=== PATIENT | female | born 1985 | race Caucasian/White ===

== ENCOUNTER 2019-06-26 21:08 | Emergency (ER) | payer SELFPAY ==
[2019-06-26 21:11] VITALS: BP 136/92; PULSE 91; RESP 18; TEMP 36.9; O2SAT 97; BMI 47.8
--- NOTE | 2019-06-26 21:15 | XR_ITS ---
WS: [id number] RIGHT KNEE: 2 VIEW(S) TECHNIQUE: AP and lateral. HISTORY: injury COMPARISON: None available. No fracture or dislocation. No joint space narrowing or osteophytes. No joint effusion. No soft tissue abnormality. XR/XR knee RT 1-2V [id number] IMPRESSION: Normal RIGHT knee.
--- NOTE | 2019-06-26 21:15 | XR_ITS ---
WS: [id number] PELVIS AND RIGHT HIP HISTORY: injury COMPARISON: None available. Right hip: Acute vertical fracture extending through the acetabulum. Fracture extends along the poste rior acetabulum and superiorly through the junction of the superior pubic rami with the ilium. Fractu re line also extends transversely along the superior acetabulum. No displacement. The femoral head is intact. Mild narrowing of the SI joints. Advanced degenerative changes in the lower lumbar spine. XR/XR hip RT 2-3V wo/w pel* [id number] IMPRESSION: 1. Acute nondisplaced, complex posterior acetabular fracture extends superiorl y to involve lateral most junction with the superior pubic rami and transversel y across the superior acetabulum. 2. No displacement.
--- NOTE | 2019-06-26 21:16 | XR_ITS ---
WS: [id number] PORTABLE CHEST HISTORY: cough COMPARISON: None available. Lungs are clear and well expanded. No pleural effusion or pneumothorax. Cardiac size: Normal. Mediastinum/Aorta: Normal mediastinum. No osseous abnormality seen. XR/XR chest 1V portable [id number] IMPRESSION: Unremarkable portable chest.
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
[2019-06-26 21:43] LABS: Basophils # 0.1 10^3/uL (0.0-0.1); Basophils % 0.4 %; Eosinophils # 0.1 10^3/uL (0.0-0.8); Eosinophils % 0.3 %; Hematocrit 40.5 % (37.0-47.0); Hemoglobin 13.5 g/dL (11.5-15.3); Lymphocytes # 2.3 10^3/uL (0.8-4.8); Lymphocytes % 11.7 %; Mean Corpuscular HGB Conc 33.3 g/dL (30.0-36.0); Mean Corpuscular Hemoglobin 33.6 pg (28.0-34.0); Mean Corpuscular Volume 100.7 fL (81-99); Mean Platelet Volume 9.8 fL (7.4-10.4); Monocytes # 1.3 10^3/uL (0.2-0.9); Monocytes % 6.4 %; Neutrophils # 15.9 10^3/uL (1.8-7.7); Neutrophils % 80.7 %; Nucleated Red Blood Cells % 0 %; Platelet Count 418 10^3/cmm (130-400); Red Blood Count 4.02 10^6/uL (4.1-5.3); Red Cell Distribution Width 13.6 % (12.1-15.1); White Blood Count 19.7 10^3/uL (4.0-10.0)
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
[2019-06-26 21:55] LABS: Alanine Aminotransferase 53 U/L (0-33); Albumin Level 4.2 g/dL (3.5-5.2); Alkaline Phosphatase 89 IU/L (35-105); Aspartate Amino Transferase 29 U/L (0-32); Blood Urea Nitrogen 11 mg/dL (6-20); Calcium 9.5 mg/dL (8.5-10.5); Carbon Dioxide 24 mmol/L (22-29); Chloride 99 mmol/L (98-107); Globulin 3.3 g/dL (1.3-4.6); Glomerular Filtration Rate 95.8 mL/min (90-130); Glucose 128 mg/dL (65-115); Osmolality Calculated 284 mOsm/kg (285-295); Sodium 138 mmol/L (136-145); Total Bilirubin 0.2 mg/dL (0.15-1.2); Total Protein 7.5 g/dL (6.6-8.7)
[2019-06-26] MEDS: iodixanol 320 mg/mL 100mL Btl IV (22:18)
[2019-06-26 22:36] LABS: HCG, Serum Qual Negative (Negative)
[2019-06-26] MEDS: ondansetron 2 mg/ML SDV 2 mL 4 MG IVP (22:36)
[2019-06-26 22:37] VITALS: RESP 16; O2SAT 99
[2019-06-26] MEDS: morphine 4 mg/mL SDV 1 mL IVP (22:37)
[2019-06-26] MEDS: sodium chloride 0.9% 1,000 ML 100 ML IV (22:47)
[2019-06-26 22:51] VITALS: BP 136/92; PULSE 90; RESP 18; O2SAT 98
[2019-06-26 22:59] LABS: INR 0.99 (0.8-1.2)
[2019-06-26 23:00] LABS: Partial Thromboplastin Time 22.9 SECONDS (23.9-36.7)
[2019-06-26 23:12] LABS: Add Urine Culture? No; Bilirubin Urine Neg (NEGATIVE); Blood Urine Neg (Negative); Glucose Urine UA Norm (Normal); Ketones Urine Negative (Negative); Leukocyte Esterase Urine Negative (Negative); Nitrate Urine Negative (Negative); Protein Urine Neg (Negative); Specific Gravity, Urine 1.015 (1.005-1.030); Urine Appearance Clear (CLEAR); Urine Color Yellow (Yellow); Urobilinogen Urine 1 mg/dL (Negative); pH Urine 6 (5-7)
[2019-06-26 23:46] VITALS: BP 136/92; PULSE 87; RESP 18; O2SAT 97
[2019-06-27] VITALS (7 sets, daily range): BP systolic 101–127; BP diastolic 69–104; PULSE 68–78; RESP 18; O2SAT 96–99
[2019-06-27] MEDS: HYDROmorphone 1 mg/mL INJ 1 mL 0.5 MG IVP ×2 (00:44→03:34)
== END 2019-06-27 03:40 | disposition short-term general hospital (02) ==
PROVIDERS: Emergency Provider Emergency Medicine; Family Provider Family Medicine; PCP Registered Nurse
DX: S32.491A Other specified fracture of right acetabulum, initial encounter for closed fracture (principal); V48.5XXA Car driver injured in noncollision transport accident in traffic accident, initial encounter; F32.9 Major depressive disorder, single episode, unspecified; M25.551 Pain in right hip
CPT/HCPCS: 12345; 51702; 70450; 71045; 71260; 72125; 72128; 72131; 73502; 73560; 73562; 74177; 80053; 81001; 84703; 85025; 85610; 85730; 96375; 99283; J1170; J2270; J2405; J7030; Q9967

== ENCOUNTER 2019-09-25 08:29 | Outpatient (RCR) | payer BC, SELFPAY | END 2019-09-25 23:59 | disposition home or self-care (01) | LOC: SPT 08:29 | PROVIDERS: PCP Family Medicine; Referring Provider Orthopaedic Surgery; Visit Provider Orthopaedic Surgery | DX: S32.401D Unspecified fracture of right acetabulum, subsequent encounter for fracture with routine healing (principal); X58.XXXD Exposure to other specified factors, subsequent encounter | CPT/HCPCS: 97110; 97162 ==

== ENCOUNTER → 2019-11-08 08:58 | Outpatient (BNVA) | payer BC, SELFPAY | PROVIDERS: PCP Family Medicine; Visit Provider Anesthesiology Pain Medicine | DX: M51.16 Intervertebral disc disorders with radiculopathy, lumbar region (principal); M47.816 Spondylosis without myelopathy or radiculopathy, lumbar region; M43.06 Spondylolysis, lumbar region; M54.9 Dorsalgia, unspecified; F17.210 Nicotine dependence, cigarettes, uncomplicated; Z79.891 Long term (current) use of opiate analgesic | CPT/HCPCS: 99205 ==

== ENCOUNTER → 2019-11-14 14:24 | Outpatient (BNVA) | payer BC, SELFPAY | PROVIDERS: PCP Family Medicine; Visit Provider Anesthesiology Pain Medicine | DX: M51.16 Intervertebral disc disorders with radiculopathy, lumbar region (principal); M54.9 Dorsalgia, unspecified; F17.210 Nicotine dependence, cigarettes, uncomplicated; Z79.891 Long term (current) use of opiate analgesic | CPT/HCPCS: 64483; 64484; J1040; J3490 ==

== ENCOUNTER → 2020-04-02 10:37 | Outpatient (BNVA) | payer BC, SELFPAY | PROVIDERS: PCP Family Medicine; Visit Provider Registered Nurse | DX: R50.9 Fever, unspecified (principal); J06.9 Acute upper respiratory infection, unspecified | CPT/HCPCS: 87635 ==

== ENCOUNTER 2020-11-11 10:31 | Emergency (ER) | payer SELFPAY ==
[2020-11-11 10:46] VITALS: BP 128/105; RESP 16; TEMP 37; O2SAT 97; BMI 44.9
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
[2020-11-11 11:11] LABS: Basophils # 0.1 10^3/uL (0.0-0.1); Basophils % 0.7 %; Eosinophils # 0.2 10^3/uL (0.0-0.8); Eosinophils % 1.7 %; Hematocrit 43.1 % (37.0-47.0); Hemoglobin 14.5 g/dL (11.5-15.3); Lymphocytes # 1.9 10^3/uL (0.8-4.8); Lymphocytes % 17.8 %; Mean Corpuscular HGB Conc 33.6 g/dL (30.0-36.0); Mean Corpuscular Volume 101.2 fl (81-99); Mean Platelet Volume 9.5 fL (7.4-10.4); Monocytes # 0.8 10^3/uL (0.2-0.9); Monocytes % 7.7 %; Neutrophils # 7.47 10^3/uL (1.8-7.7); Neutrophils % 71.6 %; Nucleated Red Blood Cells % 0 %; Platelet Count 412 10^3/cmm (130-400); Red Blood Count 4.26 10^6/uL (4.1-5.3); Red Cell Distribution Width 13.5 % (12.1-15.1); White Blood Count 10.4 10^3/uL (4.0-10.0)
[2020-11-11 11:16] LABS: Add Urine Microscopic? YES; Bilirubin Urine Neg (Negative); Blood Urine Neg (Negative); Glucose Urine UA Norm (Normal); Ketones Urine 2+ (Negative); Leukocyte Esterase Urine Negative (Negative); Nitrate Urine Negative (Negative); Protein Urine Neg (Negative); Urine Appearance Hazy (CLEAR); Urine Color Yellow (Yellow); Urobilinogen Urine Norm (Negative); pH Urine 5 (5-7)
[2020-11-11 11:25] LABS: Alanine Aminotransferase 123 U/L (0-33); Albumin Level 4.3 g/dL (3.5-5.2); Alkaline Phosphatase 102 IU/L (35-105); Anion Gap 18.2 (5-19); Aspartate Amino Transferase 93 U/L (0-32); Blood Urea Nitrogen 11 mg/dL (6-20); Carbon Dioxide 25 mmol/L (22-29); Chloride 98 mmol/L (98-107); Globulin 3.7 g/dL (1.3-4.6); Glomerular Filtration Rate 113.8 mL/min (90-130); Glucose 98 mg/dL (65-115); Osmolality Calculated 283 mOsm/kg (285-295); Potassium 4.2 mmol/L (3.5-5.1); Sodium 137 mmol/L (136-145); Total Bilirubin 0.6 mg/dL (0.15-1.2)
--- NOTE | 2020-11-11 11:29 | PC.PHAR ---
PT IS IN [facility] STATES THEY HAVENT BEEN GIVING THE PT ANY MEDICATION EXCEPT FOR TYLENOL
[2020-11-11 11:48] LABS: HCG, Serum Qual Negative (Negative)
[2020-11-11 11:51] LABS: RBC Urine RARE /hpf (0-2); WBC Urine 0-4 /hpf (0-5)
[2020-11-11 11:52] LABS: Add Urine Culture? No; Bacteria Urine 2+ /hpf; Mucus Urine 1+ /hpf; Squamous Epithelial Cell Urine 25-40 /hpf (0-5)
[2020-11-11 12:05] LABS: Hepatitis A Antibody IgM Non-Reactive (Nonreactive); Hepatitis B Core IgM Non-Reactive (Nonreactive); Hepatitis B Surface Antigen Non-Reactive (Nonreactive); Hepatitis C Virus Antibody Reactive (Nonreactive)
[2020-11-11 12:36] VITALS: BP 169/122; PULSE 111; O2SAT 97
[2020-11-11 13:51] LABS: HIV 1 & 2 Antibody Non-Reactive (Non-Reactiv); HIV 1 & 2 Antigen Non-Reactive (Non-Reactiv)
[2020-11-11] MEDS: azithromycin 250 mg Tablet 1000 MG PO (14:08)
[2020-11-11] MEDS: metroNIDAZOLE 500 MG Tablet 2000 MG PO (14:10)
[2020-11-11] MEDS: cefTRIAXone 1,000 mg SDV 1000 MG IM (14:11)
[2020-11-11] MEDS: tetanus-diphtheria tox (adult) 0.5 mL SDV IM (14:16)
[2020-11-11] MEDS: HEPATITIS B IMMUNE GLOBULIN 220 UNIT/ML 1100 UNIT IM (14:20)
[2020-11-12 23:48] LABS: HIV RNA (CPY/ML) <1.30 NOT DETECTED (NOT DETECTED); HIV RNA LOG <20 NOT DETECTED copies/mL (NOT DETECTED)
[2020-11-13 07:37] LABS: Hepatitis B Virus DNA <10 NOT DETECTED IU/mL (NOT DETECTED); Hepatitis B Virus DNA PCR <1.00 NOT DETECTED Log IU/mL (NOT DETECTED)
--- NOTE | 2020-11-13 17:37 | PC.NURSE ---
spoke to pt several times today to help give advice on how to get outpatient Rx filled. [facility] not fill truvada and issentra medications. pt instructed to fill out crisis financial application forms and provided to pt.
[2020-11-15 07:48] LABS: HEP C RNA Viral Load Quant <1.18 NOT DETECTED Log IU/mL (NOT DETECTED); HEP C RNA Viral Load Quant <15 NOT DETECTED IU/mL (NOT DETECTED)
== END 2020-11-11 14:50 ==
PROVIDERS: Nurse Practitioner Family; Emergency Provider Emergency Medicine; PCP Family Medicine
DX: T74.21XA Adult sexual abuse, confirmed, initial encounter (principal); B19.20 Unspecified viral hepatitis C without hepatic coma; N89.8 Other specified noninflammatory disorders of vagina; R10.2 Pelvic and perineal pain; F17.210 Nicotine dependence, cigarettes, uncomplicated; Z23 Encounter for immunization
CPT/HCPCS: 80053; 80074; 81001; 84703; 85025; 87210; 87491; 87517; 87522; 87536; 87591; 87806; 90371; 90471; 90714; 96372; 99283; J0696; Q0144

== ENCOUNTER 2021-01-01 10:55 | Emergency (ER) | payer SELFPAY ==
[2021-01-01 11:10] VITALS: BP 142/85; PULSE 119; RESP 20; TEMP 36.8; O2SAT 98; BMI 33.6
--- NOTE | 2021-01-01 11:17 | XR_ITS ---
WS: [id number] XR chest 1V portable [id number] REASON FOR EXAM: dyspnea/cough FINDINGS: The chest is unchanged compared to 06/26/2019. The heart and mediastinum are within normal limits. Calcified granulomatous change in both hemithoraces. No active pulmonary parenchymal or pleural disea se. Old healed right rib fractures. XR/XR chest 1V portable [id number] IMPRESSION: No acute chest abnormality.
--- NOTE | 2021-01-01 11:50 | W.ED.URI ---
HPI - URI/Sore Throat General: Chief Complaint: Upper Respiratory Infection Stated Complaint: SORE THROAT AND CONGESTION Time Seen by Provider: 01/01/21 11:15 History of Present Illness: HPI Narrative: 35-year-old female presents emergency room with complaints of cough congestion. She is also developed some laryngitis. MD elicited complaint: fever, cough, sore throat, rhinorrhea and nasal congestion Onset (ago): day(s) Consistency: constant Severity: mild Description of mucous: clear Able to tolerate fluids by mouth: Yes Exacerbating factors: exertion Relieving factors: rest Associated symptoms: Reports change in voice, congestion, cough, diarrhea, fever(s), headache(s), myalgias, nasal congestion, nausea, rhinorrhea, short of breath and sore throat; Deny abdominal pain, chills, chest pain, epistaxis, ear or mastoid pain, rash, sinus pain, stiffness or vomiting Treatments prior to arrival: acetaminophen Review of Systems Const: Reports: fever(s); Denies: chills ENMT: Reports: nasal congestion; Denies: ear or mastoid pain, epistaxis or sinus pain Card: Denies: chest pain Resp: Reports: dyspnea and non-productive cough; Denies: productive cough GI: Reports: nausea and diarrhea; Denies: abdominal pain or vomiting : Denies: flank pain, difficulty voiding, dysuria, urinary frequency or urinary urgency Skin/Breast: Denies: rash or pruritus Neuro: Reports: headache(s) [facility] ED PFSH: Medical History Psychiatric care Family History Denies family history of Anesthesia complication Bleeding disorder Social History Smoking and tobacco status: current every day smoker cigarettes Second hand smoke exposure: No Alcohol intake: current Alcohol intake frequency: holidays/special occasions only Female Reproductive History: Date of last menstrual period: 06/04/19 Physical Exam Const: COMMON NORMALS: no acute distress GENERAL APPEARANCE: cooperative and comfortable ORIENTATION/CONSCIOUSNESS: Yes awake, Yes oriented to person, Yes oriented to place and Yes oriented to time HENMT: COMMON NORMALS: normocephalic, atraumatic and hearing grossly normal bilaterally HEAD & SCALP: normocephalic and atraumatic Neck/C-Spine: COMMON NORMALS: no JVD Resp: COMMON NORMALS: normal respiratory effort, No retractions, No use of accessory muscles and clear to auscultation bilaterally AUSCULTATION: clear to auscultation bilaterally Cardio: COMMON NORMALS: no JVD, regular rate, regular rhythm and No murmurs present (Cardio) RATE: regular rate RHYTHM: regular rhythm GI: COMMON NORMALS: Soft to palpation and No hepatosplenomegaly present AUSCULTATION: Yes normoactive bowel sounds PALPATION: Yes Soft to palpation, No Tenderness to palpation present (GI), No Guarding due to palpation present (GI) and Yes No hepatosplenomegaly present Extremity: COMMON NORMALS: normal to inspection, capillary refill normal, no clubbing, cyanosis or edema, no calf tenderness and no pedal edema Neuro: SENSORIUM/ORIENTATION: Yes oriented to person, Yes oriented to place and Yes oriented to time Skin: COMMON NORMALS: no rashes or lesions noted GENERAL SKIN EXAM: no rashes or lesions noted Course Vital Signs: Vital signs: Vital Signs Temperature 98.3 F 01/01/21 11:10 Pulse Rate 102 H 01/01/21 12:46 Respiratory Rate 10 L 01/01/21 12:25 Blood Pressure 148/84 01/01/21 12:46 Pulse Oximetry 97 01/01/21 12:46 MDM - URI/Sore Throat MDM Narrative: Medical decision making narrative: Labs and imaging reviewed on chart. Discharge patient on clinically suspect she may have Covid. Recommend self-isolation until results are received controlled. Supportive care. Medrol Dosepak to use as needed albuterol as needed. Return if worsens. Lab Data: Labs: Lab Results 01/01/21 12:27 Group A Strep Rapi d Negative (Negative) Discharge Plan Discharge Patient Disposition: Home Clinical Impression: Upper respiratory infection Condition: Stable Prescriptions: New Medrol (Carlos) 4 mg tablets,dose pack See Rx Instructions .ROUTE .COMPLEX Qty: 21 RF: 0 albuterol sulfate 90 mcg/actuation HFA aerosol inhaler 2 inh INHALATION Q4H PRN (Reason: shortness of breath or wheezing) Qty: 18 RF: 0 No Action Tylenol Extra Strength 500 mg Tablet 500 - 1,000 mg PO Q6H PRN (Reason: Pain) RF: 0 metronidazole 500 mg Tablet 2,000 mg PO ONCE Qty: 4 RF: 0 doxycycline monohydrate 100 mg Tablet 100 mg PO BID Qty: 13 RF: 0 Truvada 200-300 mg tablet 1 tab PO DAILY Qty: 28 RF: 0 Discharge Orders: Discharge ED (Routine); Ordered 01/01/21 Ordered By: Ezra Hernandez Referrals: Niesha Franco DO [Primary Care Provider] - Patient Instructions: Opioid Safety Coding Level of Care Code ED Casing In Line Setter for Philippe Vega
[2021-01-01 12:25] VITALS: BP 148/84; PULSE 106; RESP 10; O2SAT 95
--- NOTE | 2021-01-01 12:25 | PC.NURSE ---
PATIENT CONNECTED TO HEAD GOLF PROFESSIONAL PER PROTOCOL.
[2021-01-01 12:46] VITALS: BP 148/84; PULSE 102; O2SAT 97
[2021-01-01 13:01] LABS: Rapid Strep A Test Negative (Negative)
[2021-01-02 16:42] LABS: Coronavirus Test Green County Not Detected
== END 2021-01-01 12:46 | disposition home or self-care (01) ==
PROVIDERS: Emergency Provider Family Medicine; PCP Family Medicine
DX: J06.9 Acute upper respiratory infection, unspecified (principal); F17.210 Nicotine dependence, cigarettes, uncomplicated; Z20.822 Contact with and (suspected) exposure to COVID-19
CPT/HCPCS: 71045; 87081; 87635; 87880; 99283

== ENCOUNTER 2022-02-04 19:30 | Emergency (ER) | payer MEDICAID, SELFPAY ==
[2022-02-04 19:32] VITALS: BP 131/81; PULSE 89; RESP 16; TEMP 36.8; O2SAT 97; BMI 42.5
[2022-02-04 19:38] VITALS: BP 131/81; PULSE 89; RESP 16; TEMP 36.8; O2SAT 97
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
--- NOTE | 2022-02-04 20:05 | CTR_ITS ---
PROCEDURE INFORMATION: Exam: CT Lumbar Spine Without Contrast Exam date and time: 02/04/2022 9:12 PM Age: 36 years old Clinical indication: Injury or trauma; Fall; Sprain or strain, lumbar ligaments; Additional info: Fall, HX back injury, urinary incontinence TECHNIQUE: Imaging protocol: Computed tomography of the lumbar spine without contrast. Sagittal and coronal reformatted images were created and reviewed. Radiation optimization: All CT scans at this facility use at least one of these dose optimization techniques: automated exposure control; mA and/or kV adjustment per patient size (includes targeted exams where dose is matched to clinical indication); or iterative reconstruction. COMPARISON: CT lumbar spine wo con* [id number] 06/26/2019 10:09 PM RADIATION DOSE METRICS: Total DLP (mGy-cm): 1099.21 FINDINGS: Bones/joints: The patient has had an interval repair of a right acetabular fracture. Vertebral body height is maintained. 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 There is increasing degenerative changes at L5-S1 with subchondral sclerosis/subchondral cysts and enlarging osteophytes. Normal bone mineralization. Visualized right and left sacroiliac joints are unremarkable. No acute fracture. Lungs: Visualized lungs are clear. Vasculature: Mild atherosclerotic changes in the visualized arteries. No evidence for aortic aneurysm. Soft tissues: No paravertebral soft tissue abnormality. No radiopaque foreign body. CT/CT lumbar spine wo con* [id number] IMPRESSION: 1. No acute fracture of the lumbar spine. CT scan would be recommended if there is continuing clinical concern for fracture. 2. 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 3. There is increasing degenerative changes at L5-S1. 4. The patient has had an interval repair of a right acetabular fracture. 5. Incidental/nonacute findings are listed in the report.
[2022-02-04 20:14] VITALS: BP 129/75; PULSE 75; RESP 16; O2SAT 97
[2022-02-04 20:32] LABS: HCG Qualitative Urine. Negative (Negative)
[2022-02-04 20:34] LABS: Add Urine Microscopic? NO; Charge for UA Resulting for Rev
[2022-02-04 20:41] LABS: Bilirubin Urine Neg (Negative); Blood Urine Neg (Negative); Glucose Urine UA Norm (Normal); Ketones Urine Negative (Negative); Nitrate Urine Negative (Negative); Protein Urine Neg (Negative); Urine Appearance Clear (CLEAR); Urine Color Yellow (Yellow); pH Urine 5 (5-7)
[2022-02-04 20:42] LABS: Leukocyte Esterase Urine Negative (Negative); Urobilinogen Urine Norm (Negative)
[2022-02-04 22:24] VITALS: PULSE 96; O2SAT 99
--- NOTE | 2022-02-05 08:12 | DCPLANNER ---
Addendum entered by Justine Pinedo 02/17/22 09:28: transportation solutions manager received the following message from the ortho clinic regarding follow up appointment: number in chart states can not be completed at this time - no option for voicemail, will mail letter to contact office to schedule transportation solutions manager called phone number [phone] left a voicemail for patient to return disability case manager phone call about follow up appointment. Original Note: transportation solutions manager had message to schedule a follow up appointment for patient with ortho. transportation solutions manager sent patients information to the front office staff at ortho. Patients information will be printed and reviewed. Clinic will call patient with appointment information.
== END 2022-02-04 22:20 | disposition home or self-care (01) ==
PROVIDERS: Emergency Provider Emergency Medicine; PCP Family Medicine
DX: M54.50 Low back pain, unspecified (principal); R32 Unspecified urinary incontinence; F17.210 Nicotine dependence, cigarettes, uncomplicated
CPT/HCPCS: 72131; 81003; 81025; 99284

== ENCOUNTER → 2022-11-03 09:58 | Outpatient (BNVA) | payer MEDICAID, SELFPAY | PROVIDERS: PCP Family Medicine; Visit Provider Nurse Practitioner Family | DX: R53.83 Other fatigue (principal); Z02.89 Encounter for other administrative examinations; Z79.891 Long term (current) use of opiate analgesic; Z98.51 Tubal ligation status; Z98.890 Other specified postprocedural states; Z98.891 History of uterine scar from previous surgery; E78.5 Hyperlipidemia, unspecified | CPT/HCPCS: 80053; 80061; 84439; 84443; 84481 ==

== ENCOUNTER → 2022-11-04 08:25 | Outpatient (BNVA) | payer MEDICAID, SELFPAY | PROVIDERS: PCP Family Medicine; Visit Provider Nurse Practitioner Family | DX: R19.7 Diarrhea, unspecified (principal) | CPT/HCPCS: 87493; 87506 ==

== ENCOUNTER → 2023-01-24 14:00 | Outpatient (BNVA) | payer OTHER, SELFPAY | PROVIDERS: PCP Nurse Practitioner Family; Visit Provider Nurse Practitioner Women's Health | DX: Z12.4 Encounter for screening for malignant neoplasm of cervix (principal) | CPT/HCPCS: 80074; 87491; 87522; 87529; 87591; 87624; 87806 ==

== ENCOUNTER → 2024-02-02 12:05 | Outpatient (BNVA) | payer BC, SELFPAY | PROVIDERS: PCP Nurse Practitioner Family; Visit Provider Nurse Practitioner Women's Health | DX: R23.2 Flushing (principal) | CPT/HCPCS: 82670; 83001; 83002; 84402; 84403 ==

== ENCOUNTER → 2024-02-07 15:09 | Outpatient (BNVA) | payer BC, SELFPAY | PROVIDERS: PCP Nurse Practitioner Family; Visit Provider Nurse Practitioner Women's Health | DX: N94.9 Unspecified condition associated with female genital organs and menstrual cycle (principal) | CPT/HCPCS: 87529 ==

== ENCOUNTER → 2024-06-07 14:20 | Outpatient (BNVA) | payer BC, SELFPAY | PROVIDERS: PCP Nurse Practitioner Family; Visit Provider Nurse Practitioner Women's Health | DX: N92.6 Irregular menstruation, unspecified (principal) | CPT/HCPCS: 84443 ==

== ENCOUNTER → 2024-06-20 08:34 | Outpatient (BNVA) | payer BC, SELFPAY | PROVIDERS: PCP Nurse Practitioner Family; Visit Provider Nurse Practitioner Women's Health | DX: N93.9 Abnormal uterine and vaginal bleeding, unspecified (principal) | CPT/HCPCS: 76830; 76856 ==